=== PATIENT | male | born 1985 | race Caucasian/White ===

== ENCOUNTER 2021-04-18 04:03 | Emergency (ER) | payer SELFPAY ==
[2021-04-18] MEDS ORDERED: ANTACID SUSP 30 ML UDC (MYLANTA) PO ONE (04:15)
[2021-04-18] MEDS ORDERED: PANTOPRAZOLE 40 MG (PROTONIX) VIAL IV ONE (04:15)
[2021-04-18] MEDS ORDERED: LIDOCAINE 2% VISCOUS 15 ML UDC PO ONE (04:15)
[2021-04-18] MEDS ORDERED: NITROGLYCERIN 0.4 MG SL TABS BTL 25'S SL PRN (04:15)
--- NOTE | 2021-04-18 04:15 | ED Chest Pain ---
General Chief Complaint: Chest Pain Stated Complaint: CP Source: patient, EMS Exam Limitations: no limitations (RACHELL SARAVIA) History of Present Illness Date Seen by Provider: April 18, 2021 Time Seen by Provider: 03:53 Initial Comments Patient presents ER by EMS from home with chief complaint that he has been having pain since 2200, 6 hours ago. He states he last ate at about 1800 some fried chicken and rice. He does not have a history of heart disease hypertension hyperlipidemia diabetes. He smokes about a pack to 2 packs/day. Is not having any nausea sweats palpitations chills fevers cough or shortness of air. He says the pain is worse when he takes deep breath or pushes on his chest. It radiates around him his left chest to his back. He also is having tenderness in his upper abdomen epigastric and left upper quadrant. He had 324 mg of aspirin per EMS as well as a dose of nitroglycerin which brought him down from a 9 to a 7. He had a EKG with no significant findings normal sinus rhythm on scene. No known family history. He denies recreational drugs. He says he only occasionally has something to drink and has had nothing tonight. No history of pancreatitis. No history of GERD or anxiety. (RACHELL SARAVIA) Allergies and Home Medications Allergies Coded Allergies: No Known Drug Allergies (Unverified , 04/18/21) Patient Home Medication List Home Medication List Reviewed: Yes (RACHELL SARAVIA) Review of Systems Review of Systems Constitutional: No chills, No fever, No malaise EENTM: No Blurred Vision, No Double Vision Respiratory: Denies Cough, Denies Shortness of Air Cardiovascular: See HPI, Chest Pain; Denies Edema Gastrointestinal: See HPI; Denies Abdomen Distended; Abdominal Pain; Denies Constipated, Denies Diarrhea, Denies Nausea Genitourinary: Denies Burning, Denies Discharge Musculoskeletal: No back pain, No joint pain Skin: No pruritus, No rash Psychiatric/Neurological: Denies Headache, Denies Numbness Hematologic/Lymphatic: Denies Anemia, Denies Blood Clots (RACHELL SARAVIA) All Other Systems Reviewed Negative Unless Noted: Yes (RACHELL SARAVIA) Past Vhnamry-Hzsrnm-Fbpiiz Hx Patient Social History Alcohol Use: Denies Use Smoking Status: Never a Smoker (RACHELL SARAVIA) Physical Exam Vital Signs Vital Signs - First Documented (JAMAR QUEEN MD) Vital Signs Capillary Refill : Less Than 3 Seconds (RACHELL SARAVIA) Height, Weight, BMI Height: '" Weight: lbs. oz. kg; BMI Method: General Appearance: WD/WN, Anxious HEENT: PERRL/EOMI, Pharynx Normal, Moist Mucous Membranes Neck: Full Range of Motion, Normal Inspection Respiratory: No Chest Non Tender (Chest pain reproducible to direct palpation.); Lungs Clear, Normal Breath Sounds, No Accessory Muscle Use, No Respiratory Distress Cardiovascular: Regular Rate, Rhythm, Normal Peripheral Pulses Gastrointestinal: Normal Bowel Sounds, No Organomegaly, Soft, Tenderness (Epigastric left upper quadrant. Negative for Dotson sign or McBurney's point. Negative for psoas or other mesenteric signs.) Extremity: Normal Capillary Refill, Normal Inspection, Non Tender Neurologic/Psychiatric: Alert, Oriented x3, No Motor/Sensory Deficits Skin: Normal Color, Warm/Dry (RACHELL SARAVIA) Progress/Results/Core Measures Results/Orders Lab Results Laboratory Tests Test 04/18/21 04:15 04/18/21 06:03 Range/Units White Blood Count 11.6 H 4.3-11.0 10^3/uL Red Blood Count 5.38 4.30-5.52 10^6/uL Hemoglobin 16.1 13.3-17.7 g/dL Hematocrit 45 40-54 % Mean Corpuscular Volume 84 80-99 fL Mean Corpuscular Hemoglobin 30 25-34 pg Mean Corpuscular Hemoglobin Concent 36 32-36 g/dL Red Cell Distribution Width 14.0 10.0-14.5 % Platelet Count 341 130-400 10^3/uL Mean Platelet Volume 10.4 9.0-12.2 fL Immature Granulocyte % (Auto) 0 % Neutrophils (%) (Auto) 70 42-75 % Lymphocytes (%) (Auto) 23 12-44 % Monocytes (%) (Auto) 6 0-12 % Eosinophils (%) (Auto) 1 0-10 % Basophils (%) (Auto) 1 0-10 % Neutrophils # (Auto) 8.1 H 1.8-7.8 10^3/uL Lymphocytes # (Auto) 2.6 1.0-4.0 10^3/uL Monocytes # (Auto) 0.7 0.0-1.0 10^3/uL Eosinophils # (Auto) 0.1 0.0-0.3 10^3/uL Basophils # (Auto) 0.1 0.0-0.1 10^3/uL Immature Granulocyte # (Auto) 0.0 0.0-0.1 10^3/uL Prothrombin Time 12.4 12.2-14.7 SEC INR Comment 0.9 0.8-1.4 Activated Partial Thromboplast Time 31 24-35 SEC Sodium Level 136 135-145 MMOL/L Potassium Level 5.2 H 3.6-5.0 MMOL/L Chloride Level 107 98-107 MMOL/L Carbon Dioxide Level 19 L 21-32 MMOL/L Anion Gap 10 5-14 MMOL/L Blood Urea Nitrogen 15 7-18 MG/DL Creatinine 1.32 H 0.60-1.30 MG/DL Estimat Glomerular Filtration Rate > 60 BUN/Creatinine Ratio 11 Glucose Level 111 H 70-105 MG/DL Calcium Level 8.7 8.5-10.1 MG/DL Corrected Calcium 8.8 8.5-10.1 MG/DL Magnesium Level 1.9 1.6-2.4 MG/DL Total Bilirubin 0.4 0.1-1.0 MG/DL Aspartate Amino Transf (AST/SGOT) 50 H 5-34 U/L Alanine Aminotransferase (ALT/SGPT) 49 0-55 U/L Alkaline Phosphatase 54 40-136 U/L Myoglobin 41.1 10.0-92.0 NG/ML Troponin I < 0.028 < 0.028 <0.028 NG/ML Total Protein 7.7 6.4-8.2 GM/DL Albumin 3.9 3.2-4.5 GM/DL Lipase 49 8-78 U/L (JAMAR QUEEN MD) Medications Given in ED Current Medications Medications Dose Ordered Sig/Giacomo Route Start Time Stop Time Status Last Admin Dose Admin Al Hydrox/Mg Hydrox/Simethicone 30 ml ONCE ONCE PO 04/18/21 04:15 04/18/21 04:16 DC 04/18/21 04:26 30 ML Calcium Gluconate 4.65 meq/Sodium Chloride 60 ml @ 120 mls/hr ONCE ONCE IV 04/18/21 05:15 04/18/21 05:44 DC 04/18/21 05:34 120 MLS/HR Lidocaine HCl 15 ml ONCE ONCE PO 04/18/21 04:15 04/18/21 04:16 DC 04/18/21 04:26 15 ML Ondansetron HCl 4 mg STK-MED ONCE .ROUTE 04/18/21 04:22 04/18/21 04:31 DC 04/18/21 04:31 4 MG Pantoprazole 40 mg ONCE ONCE IV 04/18/21 04:15 04/18/21 04:16 DC 04/18/21 04:26 40 MG (JAMAR QUEEN MD) Vital Signs/I&O 04/18/21 04/18/21 04:07 04:07 Pulse 3 Resp 20 B/P (MAP) 152/107 (122) O2 Delivery Room Air Room Air (JAMAR QUEEN MD) Progress Progress Note #1: Time: 04:18 Progress Note Aspirin was given on route. We will offer more nitroglycerin if necessary. He did seem to have some elevated blood pressure 190s when EMS arrived. You may also have gastric involvement so we will try a GI cocktail in addition to pantoprazole. Aseptic vital signs. Chest pain work-up. Progress Note #2: Time: 04:42 Progress Note The patient got a little nauseated with a GI cocktail so Zofran 4 mg was given. This has helped his nausea. The GI cocktail however did not do anything for his pain. To give him some morphine 4 mg and are checking the lipase. Progress Note #3: Time: 05:16 Progress Note Patient was softly asleep easily arousable when we returned to the room. Patient's pain is significantly improved down to a 3 out of 10 after a dose of morphine. Now after repeating an abdominal exam he does have positive Dotson sign on the right upper quadrant as well as epigastric tenderness. Suspect he has biliary colic. Will discuss dietary changes and complete a delta troponin at 6:00. If this is negative we can let him go home with some hydrocodone, pantoprazole and instructions to follow-up with Dr. Reed for outpatient work-up. We discussed return precautions. His potassium is marginally elevated and he does have some bradycardia although I do not believe is symptomatic we will give him some calcium gluconate see if this helps. (RACHELL SARAVIA) Progress Note : Progress Note 0600: I assumed care of the patient pending repeat troponin. Patient is resting comfortably otherwise right now with normal vital signs. Monitor patient. 0705: Repeat troponin negative. Patient has no chest pain. Does have mild 1 out of 10 epigastric discomfort. We will initiate outpatient omeprazole and he will follow up with Dr. Reed. I did discuss all of this with him and he agrees. Repeat abdominal exam benign without any significant tenderness, guarding or rebound to any quadrant. Discharged home with return precautions. Patient verbalized understanding of instructions and agreement with plan. (JAMAR QUEEN MD) Initial ECG Impression Date: April 18, 2021 Initial ECG Impression Time: 04:05 Initial ECG Rate: 49 Initial ECG Rhythm: Normal Sinus Initial ECG Intervals: Normal Initial ECG Impression: Normal Initial ECG Comparisson: No Previous ECG Available Comment Sinus rhythm without clinically relevant ST changes. EKG : EKG Time: 03:49 Rate: 53 Rhythm: Normal Sinus Intervals: Normal ECG Comparisson: No Previous ECG Available ECG Impression: Normal Comment Normal sinus rhythm without clinically relevant ST elevation or depression. (RACHELL SARAVIA) Diagnostic Imaging Diagonstic Imaging: Xray Plain Films/CT/US/NM/MRI: chest Comments No acute cardiopulmonary process on 1 view chest x-ray. Reviewed: Reviewed by Me (RACHELL SARAVIA) Transfer of Care Time: 06:00 Care transferred to: Dr. Queen (RACHELL SARAVIA) Departure Impression Primary Impression: Epigastric abdominal pain Additional Impression: Biliary colic Disposition: 01 HOME, SELF-CARE Condition: Stable Departure-Patient Inst. Referrals: UNKNOWN (PCP) Primary Care Physician AMELIA REED MD Patient Instructions: Abdominal Pain, Adult ED, Chest Pain (DC) Add. Discharge Instructions: All discharge instructions reviewed with patient and/or family. Voiced understanding. You should start [id number] omeprazole, 20 mg tablets, 1 tablet daily for the next 6 weeks and then as needed. It is very important that you follow-up with Dr. Reed or surgeon of your choice for recheck and further evaluation to include evaluation of the gallbladder and stomach/esophagus. You may call his office on Tuesday morning for appointment. You may take Tylenol/acetaminophen 1000 mg every 6-8 hours as needed for pain. You should use a light diet for the next few days and then advance as tolerated. Return for worse pain, fever, vomiting, weakness, chest pain, breathing problems or other concerns as needed. RACHELL SARAVIA April 18, 2021 04:15 JAMAR QUEEN MD April 18, 2021 07:12
[2021-04-18] MEDS ORDERED: ONDANSETRON 4 MG/2 ML (SDV) Z0FRAN ONE (04:22)
[2021-04-18 04:27] LABS: BASOPHILS # (AUTO) 0.1 10^3/uL (0.0-0.1); BASOPHILS % (AUTO) 1 % (0-10); EOSINOPHILS # (AUTO) 0.1 10^3/uL (0.0-0.3); EOSINOPHILS % (AUTO) 1 % (0-10); HEMATOCRIT 45 % (40-54); HEMOGLOBIN 16.1 g/dL (13.3-17.7); LYMPHOCYTES # (AUTO) 2.6 10^3/uL (1.0-4.0); LYMPHOCYTES % (AUTO) 23 % (12-44); MEAN CORPUSCULAR HEMOGLOBIN 30 pg (25-34); MEAN CORPUSCULAR HGB CONC 36 g/dL (32-36); MEAN CORPUSCULAR VOLUME 84 fL (80-99); MEAN PLATELET VOLUME 10.4 fL (9.0-12.2); MONOCYTES # (AUTO) 0.7 10^3/uL (0.0-1.0); MONOCYTES % (AUTO) 6 % (0-12); NEUTROPHILS # (AUTO) 8.1 10^3/uL (1.8-7.8); NEUTROPHILS % (AUTO) 70 % (42-75); PLATELET COUNT 341 10^3/uL (130-400); WHITE BLOOD COUNT 11.6 10^3/uL (4.3-11.0)
[2021-04-18 04:40] LABS: INR 0.9 (0.8-1.4); PROTHROMBIN TIME PATIENT 12.4 SEC (12.2-14.7)
[2021-04-18 04:42] LABS: ALBUMIN 3.9 GM/DL (3.2-4.5); CHLORIDE 107 MMOL/L (98-107); POTASSIUM 5.2 MMOL/L (3.6-5.0); SODIUM 136 MMOL/L (135-145)
[2021-04-18] MEDS ORDERED: morphine INJ 10 MG/ML 1ML (SYR OR VIAL) IVP STA ×2 (04:42→04:44)
[2021-04-18 04:43] LABS: CALCIUM 8.7 MG/DL (8.5-10.1)
[2021-04-18 04:44] LABS: GLUCOSE 111 MG/DL (70-105)
[2021-04-18 04:45] LABS: TOTAL PROTEIN 7.7 GM/DL (6.4-8.2)
[2021-04-18 04:46] LABS: BILIRUBIN,TOTAL 0.4 MG/DL (0.1-1.0); CARBON DIOXIDE 19 MMOL/L (21-32)
[2021-04-18 04:48] LABS: ALKALINE PHOSPHATASE 54 U/L (40-136); CREATININE SERUM 1.32 MG/DL (0.60-1.30); GFR ESTIMATED > 60
[2021-04-18 04:49] LABS: BUN/CREATININE RATIO 11
[2021-04-18 04:51] LABS: ALANINE AMINOTRANSFERASE 49 U/L (0-55); MAGNESIUM 1.9 MG/DL (1.6-2.4)
[2021-04-18 04:52] LABS: LIPASE 49 U/L (8-78)
[2021-04-18] MEDS ORDERED: CALCIUM GLUCONATE 10% INJ 4.65 MEQ in NS (IVPB) 50 ML IV ONE (05:15)
[2021-04-18 07:21] VITALS: BP 120/75
--- NOTE | 2021-04-18 08:17 | Diagnostic Imaging Report ---
EXAMINATION: Chest radiograph, portable AP view. DATE: 04/18/2021 4:42 AM INDICATION: 35-year-old male, chest pain. COMPARISON: None. FINDINGS: Heart size and mediastinal contours are unremarkable. There is no identified pneumothorax. There is no large pleural effusion. There is no identified focal airspace consolidation. IMPRESSION: No identified acute cardiopulmonary abnormality. Dictated by: Dictated on workstation # [id number]
== END 2021-04-18 07:21 | disposition home or self-care (01) ==
LOC: ER 04:07
DX: K80.50 Calculus of bile duct without cholangitis or cholecystitis without obstruction (principal); F17.210 Nicotine dependence, cigarettes, uncomplicated
CPT/HCPCS: 36415; 71045; 80053; 83690; 83735; 83874; 84484; 85025; 85610; 85730; 93005; 93041